=== PATIENT | male | born 1955 | race Caucasian/White ===

== ENCOUNTER 2020-04-04 14:28 | Emergency (ER) | payer BC, OTHER ==
[2020-04-04 14:40] VITALS: BP 143/83; PULSE 67
--- NOTE | 2020-04-04 14:55 | EDM.PDOC ---
ED HPI GENERAL MEDICAL PROBLEM - General Chief Complaint: Laceration Stated Complaint: L WRIST LAC Time Seen by Provider: 04/04/20 14:38 Source of Information: Reports: Patient, RN Notes Reviewed History Limitations: Reports: No Limitations - History of Present Illness INITIAL COMMENTS - FREE TEXT/NARRATIVE: Patient is a 65-year-old male who presents to the ED for evaluation of a left wrist laceration. Patient notes he was working on a sheet of metal, and this is about 30 minutes prior to arrival to the ER. Ihe fell onto a piece of this metal, and ended up with a laceration to his anterior left wrist. He denies any numbness or tingling, he can still wiggle his fingers in all range of motion, and has good strength. Pulses are intact. He believes he is up-to-date with his tetanus vaccine. This is 8 cm, linear, and fairly superficial and appears to only go as deep as the skin. This extends from about the mid wrist to the medial wrist. - Related Data Allergies Allergy/AdvReac Type Severity Reaction Status Date / Time No Known Allergies Allergy Verified 04/04/20 14:40 Home Meds: Home Meds Albuterol [Ventolin HFA] 2 puff INH Q4HR PRN 07/15/18 [History] Aspirin [Ecotrin] 325 mg PO DAILY 07/15/18 [History] Docusate Sodium [Colace] 100 mg PO BID PRN 07/15/18 [History] Famotidine 20 mg PO BID 07/15/18 [History] Metoprolol Tartrate 25 mg PO BID 07/15/18 [History] Simvastatin [Zocor] 40 mg PO BEDTIME 07/15/18 [History] Past Medical History Cardiovascular History: Reports: High Cholesterol Respiratory History: Reports: Asthma Endocrine/Metabolic History: Reports: Obesity/BMI 30+ - Past Surgical History HEENT Surgical History: Reports: Oral Surgery (wisdom teeth extraction), Tonsillectomy Musculoskeletal Surgical History: Reports: Other (See Below) (Left Achilles tendon repair) Social & Family History - Family History Family Medical History: Noncontributory Cardiac: Reports: [place], Prior Cardiac Arrest Other Cardiac Family History: father-[place] with cardiac arrest - Caffeine Use Caffeine Use: Reports: Soda - Living Situation & Occupation Living situation: Reports: , with Spouse Occupation: Employed (Self-employed [employer]) ED ROS GENERAL - Review of Systems Review Of Systems: Comprehensive ROS is negative, except as noted in HPI. ED EXAM, SKIN/RASH Exam: See Below Exam Limited By: No Limitations General Appearance: Alert, WD/WN, No Apparent Distress Respiratory/Chest: No Respiratory Distress, Lungs Clear, Normal Breath Sounds, No Accessory Muscle Use, Chest Non-Tender Cardiovascular: Normal Peripheral Pulses, Regular Rate, Rhythm, No Murmur Extremities: Normal Range of Motion, Normal Capillary Refill Neurological: Alert, Oriented, Normal Cognition, No Motor/Sensory Deficits Psychiatric: Normal Affect, Normal Mood Skin: Warm, Dry, Normal Color, No Rash, Wound/Incision (8 cm linear laceration to the patient's left anterior wrist, this extends from the mid wrist, towards the ulnar side of the patient's left arm.) ED SKIN PROCEDURES - Laceration/Wound Repair Left Anterior Wrist Appearance: Superficial, Clean Distal NVT: Neuro & Vascular Intact Anesthetic Type: Local Local Anesthesia - Lidocaine (Xylocaine): 1% Plain Local Anesthetic Volume: Other (6) Skin Prep: Chlorhexidine (Hibiciens), Saline Exploration/Debridement/Repair: Wound Explored, In a Bloodless Field, Explored to Base, No Foreign Material Found Closed with: Sutures Lac/Wound length In cm: 8 Suture Size: 4-0 # of Sutures: 17 Suture Type: Prolene, Interrupted, Simple Sterile Dressing Applied: Nurse Tetanus Status Addressed: Yes Complications: No Course - Vital Signs Last Recorded V/S: Last Vital Signs Temp 97.6 F 04/04/20 14:38 Pulse 67 04/04/20 14:38 Resp 18 04/04/20 14:38 BP 143/83 H 04/04/20 14:38 Pulse Ox 97 04/04/20 14:38 - Orders/Labs/Meds Meds: Medications Discontinued Medications Generic Name Dose Route Start Last Admin Trade Name Freq PRN Reason Stop Dose Admin Lidocaine HCl 10 ml 04/04/20 15:03 Xylocaine 1% INJECT 04/04/20 15:04 ONETIME ONE Departure - Departure Time of Disposition: 14:58 Disposition: Home, Self-Care 01 Condition: Good Clinical Impression: Laceration of wrist, left Qualifiers: Encounter type: initial encounter Qualified Code(s): S61.512A - Laceration without foreign body of left wrist, initial encounter - Discharge Information *PRESCRIPTION DRUG MONITORING PROGRAM REVIEWED*: No *COPY OF PRESCRIPTION DRUG MONITORING REPORT IN PATIENT BRENDA: No Instructions: Sutured Wound Care, [id number] Referrals: Waqas Paez MD [Primary Care Provider] - Forms: ED Department Discharge Additional Instructions: You have been evaluated in the ED for your laceration. Sutures will need to stay in for 10-14 days. You may return to the ED or any clinic for removal. Please keep this area clean and dry, you may cleanse with regular soap and water. No vigorous scrubbing. Please try to avoid submerging the affected area in water for prolonged periods of time until the sutures are removed. Watch out for signs of infection like increased redness, swelling, pain at the laceration site, or if you should develop any fevers or chills. Please return to ED if your symptoms change or worsen. Sepsis Event Note (ED) - Evaluation Sepsis Screening Result: No Definite Risk - Focused Exam Vital Signs: Vital Signs Temp Pulse Resp BP Pulse Ox 04/04/20 14:38 97.6 F 67 18 143/83 H 97
[2020-04-04] MEDS ORDERED: Lidocaine 1% 10 ML MDV INJECT ONE (15:03)
== END 2020-04-04 16:35 | disposition home or self-care (01) ==
LOC: JD.ED 14:28
DX: S61.512A Laceration without foreign body of left wrist, initial encounter (principal); J45.909 Unspecified asthma, uncomplicated; E78.00 Pure hypercholesterolemia, unspecified; E66.9 Obesity, unspecified; Z79.82 Long term (current) use of aspirin; Z79.899 Other long term (current) drug therapy; Z68.31 Body mass index [BMI] 31.0-31.9, adult; W22.8XXA Striking against or struck by other objects, initial encounter
CPT/HCPCS: 12004; 99282; J2001

== ENCOUNTER 2023-03-28 07:55 | Day surgery (SDC) | payer OTHER ==
[~2023-03-28 07:55] MED LIST: Cefuroxime 10 MG/ML SYRINGE EYERT SCH; Lidocaine 1% PF 2 ML SDV INJECT SCH; Pilocarpine 4% Ophth Soln 15 ML Bot EYERT SCH
[2023-03-28] MEDS: Polymyxin B/Trimethoprim 10 ML Bottle EYERT SCH ×3 (08:15→10:27)
[2023-03-28] MEDS: Brimonidine 0.2% Ophth Soln 15 ML Bottle EYERT SCH ×3 (08:19→10:27)
[2023-03-28] MEDS: Phenylephrine 2.5% Ophth Soln 2 ML Bot EYERT SCH ×5 (08:21→10:06)
[2023-03-28] MEDS: Tropicamide 1% Ophth Soln 15 ML Bottle EYERT SCH ×4 (08:27→09:31)
[2023-03-28] MEDS: Tetracaine HCl/PF 0.5% 4 ML Bottle EYEBOTH SCH ×4 (09:55→10:16)
[2023-03-28 19:05] VITALS: BP 120/82; PULSE 53
== END 2023-03-28 10:40 | disposition home or self-care (01) ==
LOC: JD.SDS 07:55
PROVIDERS: ATTEND Ophthalmology
DX: H25.813 Combined forms of age-related cataract, bilateral (principal); E78.00 Pure hypercholesterolemia, unspecified; J45.909 Unspecified asthma, uncomplicated; E66.9 Obesity, unspecified; Z79.82 Long term (current) use of aspirin; Z79.899 Other long term (current) drug therapy; Z68.31 Body mass index [BMI] 31.0-31.9, adult
CPT/HCPCS: 66984; A9270; J0697; 00142; J3490; V2632

== ENCOUNTER 2023-04-25 11:01 | Day surgery (SDC) | payer MEDICARE, BC ==
[2023-04-25] MEDS: Polymyxin B/Trimethoprim 10 ML Bottle EYELF SCH ×4 (09:32→11:13)
[2023-04-25] MEDS: Brimonidine 0.2% Ophth Soln 5 ML Bottle EYELF SCH ×4 (09:37→11:13)
[2023-04-25] MEDS: Phenylephrine 2.5% Ophth Soln 2 ML Bot EYELF SCH ×6 (09:42→10:52)
[2023-04-25] MEDS: Tropicamide 1% Ophth Soln 3 ML Bottle EYELF SCH ×4 (09:48→10:26)
[2023-04-25] MEDS: Tetracaine HCl/PF 0.5% 4 ML Bottle EYEBOTH SCH ×4 (10:36→10:52)
[2023-04-25] MEDS: Lidocaine 1% PF 2 ML SDV INJECT SCH ×2 (10:38→11:04)
[2023-04-25] MEDS: Pilocarpine 4% Ophth Soln 15 ML Bot EYELF SCH ×2 (10:38→11:13)
[2023-04-25] MEDS: Cefuroxime 10 MG/ML SYRINGE EYELF SCH ×2 (10:38→11:04)
[2023-04-25 11:33] VITALS: BP 129/90; PULSE 51
== END 2023-04-25 11:25 ==
LOC: JD.SDS 11:01
PROVIDERS: ATTEND Ophthalmology
DX: H25.812 Combined forms of age-related cataract, left eye (principal); H52.31 Anisometropia; H16.103 Unspecified superficial keratitis, bilateral; H16.203 Unspecified keratoconjunctivitis, bilateral; H02.834 Dermatochalasis of left upper eyelid; H02.831 Dermatochalasis of right upper eyelid; I10 Essential (primary) hypertension; J45.909 Unspecified asthma, uncomplicated; E78.00 Pure hypercholesterolemia, unspecified; Z98.41 Cataract extraction status, right eye; Z96.1 Presence of intraocular lens; Z79.899 Other long term (current) drug therapy; E66.9 Obesity, unspecified; Z79.82 Long term (current) use of aspirin
CPT/HCPCS: 66984; A9270; J0697; J3490